=== PATIENT | male | born 1940 | race Caucasian/White ===

== ENCOUNTER 2017-12-16 19:40 | Emergency (ER) | payer OTHER ==
[~2017-12-16] VITALS: Ht 172.7 cm; Wt 77.1 kg
--- NOTE | ~2017-12-16 | EKG ---
[facility] [address] [address] [place] [address] ELECTROCARDIOGRAM REPORT Name: FABIÁN SHANNON Room #: CYDNEY Menjivar#: [id number] Admission: 12/16/17 Attend Phys: Discharge: 12/16/17 Date of : 44 Report #: [id number] THIS REPORT FOR: //name// 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: COLIN : 1940 Requested By: Elliott Mcfarland Order Number: [id number] MD: Brent Allison Measurements Intervals [place] Rate: 50 P: 77 MS: 222 QRS: -42 QRSD: 138 T: 32 QT: 531 QTc: 485 Interpretive Statements Sinus bradycardia Prolonged MS interval Nonspecific intraventricular conduction delay No previous ECG available for comparison Electronically Signed On 12-18-2017 13:59:56 CDT by Brent Allison [email or web address] <ELECTRONICALLY SIGNED> By: Brent Allison MD, [facility] 12/18/17 [id number] Brent Allison MD, FACC /EPI
[2017-12-16 20:09] LABS: HEMATOCRIT 39.4 % (42.0-52.0); HEMOGLOBIN 13.6 gm/dL (14.0-18.0); MCH 32.4 pg (26.0-34.0); MCHC 34.6 g/dL (28.0-37.0); MCV 93.5 fL (80.0-100.0); PLATELET COUNT 160 thou/uL (150-400); RBC 4.22 mil/uL (4.50-6.00); RDW 15.3 % (10.5-14.5); WBC 14.9 thou/uL (4.0-11.0)
[2017-12-16 20:21] LABS: CALCIUM 9.9 mg/dL (8.5-10.1); CREATININE 1.3 mg/dL (0.7-1.3); POTASSIUM 3.9 mmol/L (3.5-5.1)
[2017-12-16 20:27] LABS: ALBUMIN 4.3 g/dL (3.4-5.0); TOTAL PROTEIN 7.5 g/dL (6.4-8.2)
[2017-12-16 20:30] LABS: ABSOLUTE NEUTROPHILS 10.9 thou/uL (1.4-8.2); ANISOCYTOSIS 1+
[2017-12-16 23:00] VITALS: BP 145/61
== END 2017-12-16 23:00 | disposition home or self-care (01) ==
LOC: EDBD 19:40 → ER 19:40
PROVIDERS: Physician Assistant
DX: R41.82 Altered mental status, unspecified (principal); E10.649 Type 1 diabetes mellitus with hypoglycemia without coma